=== PATIENT | male | born 1995 | race Native Hawaiian/Other Pacific Islander ===

== ENCOUNTER 2018-03-02 11:55 | Emergency (ER) | payer OTHER ==
[~2018-03-02] VITALS: Ht 185.4 cm; Wt 81.6 kg
[2018-03-02 12:19] LABS: PLATELET COUNT 267 K/uL (142-355)
[2018-03-02 12:38] LABS: POTASSIUM 3.9 mmol/L (3.6-5.2)
[2018-03-02 13:24] VITALS: BP 191/92; TEMP 98.1
== END 2018-03-02 13:24 | disposition home or self-care (01) ==
LOC: ED 11:55
DX: S67.191A Crushing injury of left index finger, initial encounter (principal); S62.601A Fracture of unspecified phalanx of left index finger, initial encounter for closed fracture; W31.9XXA Contact with unspecified machinery, initial encounter
CPT/HCPCS: 80053; 85027; 90715; 96372; 96374; 99283; J0696; J2175; J2550; J7040